=== PATIENT | male | born 1990 | race Caucasian/White ===

== ENCOUNTER 2019-10-18 14:03 | Emergency (ER) | payer OTHER ==
[2019-10-18 14:15] VITALS: BP 149/82; PULSE 76; TEMP 98.2; BMI 20.9
[2019-10-18] MEDS ORDERED: IBUPROFEN 600 MG TABLET (FP) PO ONE ×2 (14:38→14:47)
--- NOTE | 2019-10-18 14:38 | PDOC ---
History of Present Illness - General Chief Complaint: Cold Symptoms Stated Complaint: COLD SYMPTOMS Time Seen by Provider: 10/18/19 14:18 History Source: Patient - History of Present Illness Initial Comments: 10/18/19 14:50 Chief complaint: I do not feel well Patient is a 28-year-old male with history of herpes for a long time who is complaining of 1 day of headache, runny nose, cough and sore throat. Patient is asking to stay in the hospital for 1 to 2 days because he stinks and he needs to ask. When asked about where he lives he is reluctant to say. Did say he was in senior care last night. No fever. GENERAL/CONSTITUTIONAL: No fever, weakness. dizziness HEAD, EYES, EARS, NOSE AND THROAT: No change in vision. No ear pain or discharge. No sore throat. CARDIOVASCULAR: No chest pain RESPIRATORY: No shortness of breath or cough GASTROINTESTINAL: No pain, nausea, vomiting, diarrhea or constipation GENITOURINARY: No dysuria MUSCULOSKELETAL: No neck or back pain SKIN: No rash NEUROLOGIC: No headache, vertigo, loss of consciousness, or loss of sensation. GENERAL: The patient is awake, alert, and fully oriented, in no acute distress. HEAD: Normal with no signs of trauma. EYES: Pupils equal, round and reactive to light, sclera anicteric, conjunctiva clear. ENT: pharynx: mild erythema, no exudate, uvula midline NECK: supple CHEST: clear, nontender, rr ABD: soft, nontender BACK: no tenderness or signs of injury EXTREMITIES: Normal range of motion, no edema. NEUROLOGICAL: Normal speech, normal gait. SKIN: Warm, Dry Past History - Past Medical History Allergies/Adverse Reactions: Allergies Allergy/AdvReac Type Severity Reaction Status Date / Time No Known Allergies Allergy Verified 10/18/19 14:15 Home Medications: Ambulatory Orders Valacyclovir HCl [Valtrex] 1,000 mg PO BID #14 tablet 10/18/19 COPD: No - Psycho Social/Smoking Cessation Hx Smoking History: Never smoked *Physical Exam - Vital Signs Last Vital Signs Temp Pulse Resp BP Pulse Ox 98.2 F 76 18 149/82 100 10/18/19 14:12 10/18/19 14:12 10/18/19 14:12 10/18/19 14:12 10/18/19 14:12 Medical Decision Making - Medical Decision Making 10/18/19 14:53 28-year-old male with a history of oral and genital herpes for a long time states that he is ill today and needs a place to shower and sleep. Patient also has URI symptoms, patient is reluctant to give details patient then says what if it is a mental health issue. When patient asked he is reluctant to say what it is, he denies feeling suicidal because he loves himself. Not homicidal. Patient did say that he was in a psychiatric hospital last week for 3 days in the [facility] and then he was picked up on a bench warrant and spent the night last night in senior care. He is usually in the [facility]. Unable to gather much more information. Patient is calm, coherent and able to carry on a conversation Will assess patient for flu and strep, give Motrin, there is no acute psychiatric issue presenting. 10/18/19 15:51 Plus patient requesting prescription for Valtrex, for oral and genital, would now allow an exam, since recurrent and unable to fully assess immunocompromised status, will give 1 g twice a day for 7 days Discharge instructions given to patient, patient calm and cooperative, understands, given resources for usp information, outpatient psychiatric and recommended if he has any further psychiatric issues over the weekend that he should go to [facility] where he can get psychiatric services and evaluation Discharge - Discharge Information Problems reviewed: Yes Clinical Impression/Diagnosis: Upper respiratory infection Qualifiers: URI type: unspecified URI Qualified Code(s): J06.9 - Acute upper respiratory infection, unspecified Condition: Stable Disposition: HOME - Admission No - Additional Discharge Information Prescriptions: Valacyclovir HCl [Valtrex] 1,000 mg PO BID #14 tablet - Follow up/Referral - Patient Discharge Instructions Patient Printed Discharge Instructions: DI for Viral Upper Respiratory Infection -- Adult Additional Instructions: Drink 2-3 L of water daily Take Tylenol 650 mg every 4 hours or Motrin 600 mg every 6 hours for fever and pain Return to the nearest ER if short of breath, unable to swallow or feeling sicker Followup with your doctor in one to 2 days usp: [address] [address] Medical care, psychiatric care at [address] [place] [address] If you think you are having worse psychiatric issues before Sunday where you can see outpatient, you should go to [facility] at [address] where they have psychiatric services in their emergency department. They will assess you further and determine if you need any further services over the weekend - Post Discharge Activity
== END 2019-10-18 15:49 | disposition home or self-care (01) ==
LOC: JERFT 14:03
DX: J06.9 Acute upper respiratory infection, unspecified (principal); Z86.19 Personal history of other infectious and parasitic diseases; Z59.0 Homelessness
CPT/HCPCS: 87070; 87077; 87804; 87880; 99281-25

== ENCOUNTER 2021-06-06 12:17 | Emergency (ER) | payer OTHER ==
[2021-06-06 12:23] VITALS: BP 114/73; PULSE 98; TEMP 97.9; BMI 20.2
[2021-06-06] MEDS ORDERED: DIPHTH,PERTUSS(ACELL),TET 0.5 ML DISP.SYRIN IM ONE ×3 (12:40→14:53)
== END 2021-06-06 14:45 | disposition left against medical advice (07) ==
LOC: JER 12:17
PROC: 3E0234Z Introduction of Serum, Toxoid and Vaccine into Muscle, Percutaneous Approach (ICD-10-PCS; principal; 2021-06-06)
DX: S09.90XA Unspecified injury of head, initial encounter (principal); W20.8XXA Other cause of strike by thrown, projected or falling object, initial encounter; Y92.69 Other specified industrial and construction area as the place of occurrence of the external cause; Y93.H3 Activity, building and construction
CPT/HCPCS: 70450-TC; 99284-25

== ENCOUNTER 2021-08-26 02:07 | Emergency (ER) | payer OTHER ==
[2021-08-26 02:47] VITALS: BP 128/73; PULSE 76; TEMP 98.1; BMI 24.2
== END 2021-08-26 06:41 | disposition home or self-care (01) ==
LOC: JER 02:07
DX: F41.9 Anxiety disorder, unspecified (principal)
CPT/HCPCS: 99281-25

== ENCOUNTER 2022-07-15 19:59 | Emergency (ER) | payer OTHER ==
[2022-07-15 20:18] VITALS: BP 108/67; PULSE 101; RESP 18; TEMP 98; BMI 22.3
[2022-07-15] MEDS ORDERED: KETOROLAC TROMETHAMINE 30 MG/1 ML VIAL IM ONE (20:49)
[2022-07-15] MEDS ORDERED: KETOROLAC TROMETHAMINE 30 MG/1 ML VIAL ONE (20:53)
== END 2022-07-15 22:16 | disposition home or self-care (01) ==
LOC: JER 19:59
PROC: 3E023GC Introduction of Other Therapeutic Substance into Muscle, Percutaneous Approach (ICD-10-PCS; principal; 2022-07-15)
DX: M25.562 Pain in left knee (principal)
CPT/HCPCS: 73562-TC-LT-FY; 76882-TC-LT; 99284-25